=== PATIENT | male | born 1935 | race Caucasian/White ===

== ENCOUNTER → 2017-06-17 | Outpatient (CLI) | payer MEDICARE ==
[2014-05-13 13:24] VITALS: BMI 27.4
[~2017-06-17] MED LIST: ACET-1966 PO; ADVANCED PROBIOTIC; ALL300 PO; ALTACE PO; AMLO-104 PO; AMLO-552 PO; ASPI-757 PO; ATR80PT PO; BUME1TAB19 PO; CYCL2DRO OP; DABI150C3 PO; DIFL5DRO3 OP; FAMO1TAB79 PO; GANC5GEL OP; HYDR12.558 PO; LOTE5DRO3 OD; MELO-150 PO; MIDO5TAB20 PO; MON10 PO; PANT40TA65 PO; PNEU0.5D3 IM; PRED5DRO34 OP; RAMI10CA72 PO; SILD20TA PO; VALA500T63 PO; VALA500T66 PO; VIT-7 PO; [UNRECOGNIZED DRUG - CODE] OP; [UNRECOGNIZED DRUG - OTHER] OD
[2017-06-17 10:47] LABS: PLATELET COUNT, AUTOMATED 164 K/uL (150-450)
--- NOTE | 2017-06-17 11:55 | RADIOLOGY IMAGING REPORT ---
FACILITY: [facility] - [place] PATIENT NAME: Estefania Gregorio : 1935 MR: [id number] V: [id number] EXAM DATE: ORDERING PHYSICIAN: ESTEFANIA GREGORIO TECHNOLOGIST: [place] [facility] [place] Estef[place] Greg[place] : 1935 Visit/Account:[id number] Date of Sevice: 06/17/2017 Exam type: SINUSES MIN 3 VIEWS History: Chronic sinusitis, right-sided pressure Comparison: None. Findings: The paranasal sinuses appear well aerated without evidence of air-fluid levels. No plain radiograph evidence of bony erosion or intrasinus masses. No evidence of nasal septal deviation. There appears to be hypopneumatization of the mastoid air cells. IMPRESSION: 1. Paranasal sinuses appear well aerated There is hypopneumatization of the mastoid air cells Report Dictated By: Courtney Dillard MD at 06/17/2017 11:48 AM Report E-Signed By: Courtney Dillard MD at 06/17/2017 11:51 AM WSN:[email or web address]
== END ==
LOC: RAD 10:17
DX: C61 Malignant neoplasm of prostate (principal); I27.20 Pulmonary hypertension, unspecified
CPT/HCPCS: 36415; 70220; 82040; 82247; 82248; 82310; 82374; 82435; 82465; 82565; 82947; 83718; 84075; 84132; 84153; 84155; 84295; 84443; 84450; 84460; 84478; 84520; 85025

== ENCOUNTER → 2017-07-20 | Outpatient (CLI) | payer MEDICARE ==
[2014-05-13 13:24] VITALS: BMI 27.4
--- NOTE | 2017-07-22 10:11 | RADIOLOGY IMAGING REPORT ---
[place] [facility] [place] NAME: ESTEFANIA GREGORIO : [id number] MR: [id number] V: [id number] EXAM DATE: [id number] ORDERING PHYSICIAN: ESTEFANIA HOPKINS TECHNOLOGIST: Sandra Hampton EXAMINATION:TWO-DIMENSIONAL ECHOCARDIOGRAPH REASON:RE-EVALUATION OF PULMONARY PRESSURES. LIMITED 2-D ECHOCARDIOGRAM Overall left ventricular systolic function does appear to be normal. Aortic valve is trileaflet in configuration and appears to be sclerotic and mildly stenotic. Color examination of the tricuspid valve revealed mild to moderate amount of tricuspid insufficiency. The tricuspid regurgitation V-max was measured at 4.11 m/sec. Estimated right atrial pressure was 15 mmHg giving a total right ventricular pressure of 83 mmHg. The pacemaker wire is present in the right sided heart chambers. OVERALL IMPRESSION: 1. Limited 2 dimensional echocardiograph looking at right ventricular pressures which total 83 mmHg. This indicates severe pulmonary hypertension,and increased right ventricular systolic pressures. 2. In comparison to the examination done on 06/07/2017, there does not appear to be any change in the right ventricular pressures. Dictated by: Myriam Hopkins M.D. on 07/21/2017 at 17:41 Transcribed by: AN on 07/21/2017 at 18:14 Approved by: Myriam Hopkins M.D. on 07/22/2017 at 10:10 [facility]
== END ==
LOC: US 02:28
PROVIDERS: ATTEND Internal Medicine
DX: I27.20 Pulmonary hypertension, unspecified (principal); I25.10 Atherosclerotic heart disease of native coronary artery without angina pectoris; I35.0 Nonrheumatic aortic (valve) stenosis; I07.1 Rheumatic tricuspid insufficiency; Z95.0 Presence of cardiac pacemaker
CPT/HCPCS: 93308; 93325

== ENCOUNTER → 2017-11-07 | Outpatient (CLI) | payer MEDICARE ==
[2014-05-13 13:24] VITALS: BMI 27.4
[~2017-11-07] MED LIST changes: +ALLO-119 PO; +ATOR-1 PO; +MONT10TA4 PO
== END ==
LOC: LAB 09:20
DX: E29.1 Testicular hypofunction (principal)
CPT/HCPCS: 36415; 84270; 84403

== ENCOUNTER → 2017-12-20 | Outpatient (CLI) | payer MEDICARE ==
[2014-05-13 13:24] VITALS: BMI 27.4
[~2017-12-20] MED LIST changes: +TEST200V IM
== END ==
LOC: US 01:10
PROVIDERS: ATTEND Internal Medicine
DX: I27.20 Pulmonary hypertension, unspecified (principal); I48.91 Unspecified atrial fibrillation; Z95.0 Presence of cardiac pacemaker; I51.7 Cardiomegaly; I50.30 Unspecified diastolic (congestive) heart failure; I34.0 Nonrheumatic mitral (valve) insufficiency; I35.1 Nonrheumatic aortic (valve) insufficiency
CPT/HCPCS: 93306

== ENCOUNTER → 2018-01-17 | Outpatient (CLI) | payer MEDICARE ==
[2014-05-13 13:24] VITALS: BMI 27.4
--- NOTE | 2018-01-17 14:27 | RADIOLOGY IMAGING REPORT ---
FACILITY: [facility] PATIENT NAME: Grzegorz Davis : 1935 MR: [id number] V: [id number] EXAM DATE: ORDERING PHYSICIAN: SAHIL BARRETO TECHNOLOGIST: Location: [facility] - [place] Patient: Grzegorz Davis : 1935 Visit/Account:[id number] Date of Sevice: 01/17/2018 Exam type: CHEST PA AND LAT History: Pulmonary hypertension Comparison: November 13, 2013. Findings: The lungs are free of acute effusions, infiltrates or edema. There is moderate cardiomegaly slightly increased when compared to the prior study. A single lead cardiac pacemaker is present the distal t ip projecting over the right ventricle. 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 Moderate spon dylotic changes of the thoracic spine IMPRESSION: 1. No evidence of pulmonary consolidation Moderate cardiomegaly slightly increased when compared the prior study Moderate ectasia the thoracic aorta Report Dictated By: Courtney Dillard MD at 01/17/2018 2:21 PM Report E-Signed By: Courtney Dillard MD at 01/17/2018 2:24 PM WSN:[email or web address]
--- NOTE | 2018-01-17 14:35 | RADIOLOGY IMAGING REPORT ---
FACILITY: [facility] [place] PATIENT NAME: Grzegorz Davis : 1935 MR: [id number] V: [id number] EXAM DATE: ORDERING PHYSICIAN: SAHIL BARRETO [place]CHNOLOG[place] [facility] [place]zeg[place] : 1935 Visit/Account:[id number] Date of Sevice: 01/17/2018 Examination: Nuclear medicine quantitative ventilation and perfusion imaging COMPARISON: Chest x-ray same day HISTORY: Pulmonary hypertension. TECHNIQUE: 32.2 mCi aerosolized technetium 99m DTPA was administered by inhalation. Multiplanar static images w ere obtained. 2.0 mCi Tc MAA was injected intravenously. Gamma camera images were obtained of the chest in various orientations. Postprocessing includes determination of relative function for the upper, middle, and lower thirds of each lung on both ventilation and perfusion imaging. FINDINGS: Lung ventilation radiotracer distribution: Mildly heterogeneous tracer distribution but no segmental ventilation defect. Lung perfusion radiotracer distribution: Mildly heterogeneous tracer distribution particularly in th e left lower lobe but no segmental perfusion defect. Quantitative function: Perfusion / ventilation (geometric mean % ratios) Left upper: 16.5 / 15.7 Right upper: 9.0 / 9.5 Left middle: 19.4 / 20.6 Right middle: 30.5 / 30.6 Left lower: 5.4 / 5.3 Right lower: 19.2 / 18.3 Correlation to chest x-ray: No consolidation or effusion. IMPRESSION: 1. Negative VQ scan for pulmonary embolism. 2. Quantitative evaluation as detailed above. Report Dictated By: Margarito Macedo MD at 01/17/2018 2:27 PM Report E-Signed By: Margarito Macedo MD at 01/17/2018 2:31 PM WSN:[id number]
== END ==
LOC: RAD 01:56
PROVIDERS: ATTEND Internal Medicine
DX: I51.7 Cardiomegaly (principal); I77.810 Thoracic aortic ectasia
CPT/HCPCS: 71046; 78582; A9540; A9567

== ENCOUNTER → 2018-07-05 | Outpatient (CLI) | payer MEDICARE ==
[2014-05-13 13:24] VITALS: BMI 27.4
== END ==
LOC: US 00:24
PROVIDERS: ATTEND Internal Medicine Cardiovascular Disease
DX: I51.7 Cardiomegaly (principal); I35.0 Nonrheumatic aortic (valve) stenosis
CPT/HCPCS: 93306

== ENCOUNTER → 2018-11-17 | Outpatient (CLI) | payer MEDICARE ==
[2014-05-13 13:24] VITALS: BMI 27.4
[~2018-11-17] MED LIST changes: +PNEI IJ
[2018-11-17 10:22] LABS: PLATELET COUNT, AUTOMATED 153 K/uL (150-450)
== END ==
LOC: LAB 09:54
PROVIDERS: ATTEND Internal Medicine
DX: I49.5 Sick sinus syndrome (principal); I35.0 Nonrheumatic aortic (valve) stenosis; I10 Essential (primary) hypertension; I25.10 Atherosclerotic heart disease of native coronary artery without angina pectoris; E78.5 Hyperlipidemia, unspecified; Z85.46 Personal history of malignant neoplasm of prostate; Z95.0 Presence of cardiac pacemaker
CPT/HCPCS: 36415; 82040; 82247; 82310; 82374; 82435; 82465; 82565; 82947; 83718; 84075; 84132; 84153; 84155; 84295; 84403; 84443; 84450; 84460; 84478; 84520; 85025

== ENCOUNTER → 2018-11-20 | Outpatient (CLI) | payer MEDICARE ==
[2014-05-13 13:24] VITALS: BMI 27.4
[~2018-11-20] MED LIST changes: -BUME1TAB19 PO; +BUME1TAB21 PO
== END ==
LOC: LAB 12:54
PROVIDERS: ATTEND Internal Medicine
DX: E83.52 Hypercalcemia (principal)
CPT/HCPCS: 36415; 82607; 82746